=== PATIENT | male | born 1980 | race Two or more races ===

== ENCOUNTER 2017-10-26 21:42 | Emergency (ER) | payer MEDICAID ==
[~2017-10-26] VITALS: Ht 170.2 cm; Wt 65.8 kg
[2017-10-26] MEDS ORDERED: DICYCLOMINE HCL INJ 20 MG/2 ML AMPUL IM ONE ×3 (21:56→22:04)
[2017-10-26] MEDS ORDERED: IV NS 0.9% 1,000 ML BAG IV ONE (22:00)
[2017-10-26 22:08] LABS: BASOPHILS % (AUTO) 0.2 % (0.0-2.0); HEMATOCRIT 54 % (39-51); HEMOGLOBIN 17.4 g/dL (13.5-17.5); LYMPHOCYTES # (AUTO) 1.2 /CMM (0.8-4.8); LYMPHOCYTES % (AUTO) 11.4 % (20.0-44.0); MEAN CORPUSCULAR HEMOGLOBIN 29 PG (26.0-33.0); MEAN CORPUSCULAR HGB CONC 32 g/dl (31.0-36.0); MEAN CORPUSCULAR VOLUME 91 fL (80-96); MONOCYTES # (AUTO) 0.5 /CMM (0.1-1.30); MONOCYTES % (AUTO) 4.4 % (2.0-12.0); NEUTROPHILS # (AUTO) 8.9 /CMM (1.8-8.9); PLATELET COUNT (AUTO) 363 /CMM (150-450); RDW COEFFICIENT OF VARIATION 13.2 (11.5-15.0); RED BLOOD CELL COUNT(AUTO) 5.93 MIL/uL (4.5-6.0); WHITE BLOOD COUNT (AUTO) 10.5 K/uL (4.3-11.0)
--- NOTE | 2017-10-26 22:10 | NUR ---
PT BIB [facility] FROM HOME. PT C/O ABD NAUSEA/ VOMIT X 1 DAY. PT AAOX4. RESPIRATIONS EVEN AND UNLABORED. IV START 18G R FOREARM. LABS DRAWN AND GIVEN TO PEDIATRICIAN/MEDICAL DOCTOR AT BEDSIDE. DR GRANT AT BEDSIDE. PT PLACED ON MONITOR.
[2017-10-26 22:17] LABS: CALCIUM, SERUM 8.9 mg/dL (8.5-10.1); CREATININE 1.5 mg/dL (0.6-1.3); POTASSIUM 3.4 mmol/L (3.5-5.1)
--- NOTE | 2017-10-26 23:21 | NUR ---
INFORMED PT'S HEART RATE 117
--- NOTE | 2017-10-27 00:25 | NUR ---
PT UNABLE TO PROVIDE URINE
[2017-10-27] MEDS ORDERED: IV NS 0.9% 1,000 ML BAG IV ONE (00:30)
--- NOTE | 2017-10-27 01:15 | NUR ---
PT AROUSABLE. UNABLE TO PROVIDE URINE AT THIS TIME. MD JUNIOR
--- NOTE | 2017-10-27 02:55 | NUR ---
Francisco Javier goldsmith in [facility] - 10/27/17 at 0259 by ALVAREZ RT AT [facility]
--- NOTE | 2017-10-27 03:00 | NUR ---
UNABLE TO GET URINE AT THIS TIME. AWARE
--- NOTE | 2017-10-27 05:34 | NUR ---
IV removed. Catheter intact and site benign. Pressure and 4x4 applied to site. No bleeding noted. Patient discharged to home in stable condition. Written and verbal after care instructions given. Patient verbalizes understanding of instruction. Pt ambulatory with a steady gait
[2017-10-27 05:46] VITALS: BP 117/72
== END 2017-10-27 05:46 | disposition home or self-care (01) ==
LOC: ER 21:44
DX: R11.10 Vomiting, unspecified (principal)
CPT/HCPCS: 36415 ×2; 80048; 85025; 96360; 96361; 96372; 99284; A4606; G0480; J0500; J7030 ×2; Z7610